=== PATIENT | female | born 1945 | race Caucasian/White ===

== ENCOUNTER 2018-10-29 18:17 | Emergency (ER) | payer OTHER, MEDICARE ==
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
[2018-10-29 21:53] VITALS: BP 162/73
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
--- NOTE | 2018-10-30 09:09 | EKG REPORT ---
SEVERITY:- BORDERLINE ECG - SINUS RHYTHM BORDERLINE T WAVE ABNORMALITIES : Confirmed by: Flakito Stern 30-Oct-2018 09:09:24
== END 2018-10-29 21:53 | disposition home or self-care (01) ==
LOC: ER 18:17
DX: S29.9XXA Unspecified injury of thorax, initial encounter (principal); R07.9 Chest pain, unspecified; V87.7XXA Person injured in collision between other specified motor vehicles (traffic), initial encounter; I10 Essential (primary) hypertension; E11.9 Type 2 diabetes mellitus without complications
CPT/HCPCS: 71046; 93005; 93010; 99284

== ENCOUNTER 2020-10-03 21:25 | Observation (INO) | payer MEDICARE, OTHER ==
--- NOTE | 2020-10-03 21:41 | ER Document Report ---
ED Medical Screen (RME) - General Stated Complaint: NAUSEA/HEADACHE/CHEST PRESSURE Time Seen by Provider: 10/03/20 21:31 Primary Care Provider: SKYE SUGGS MD [Primary Care Provider] - Follow up as needed Mode of Arrival: Wheelchair Information source: Patient Notes: HPI; 75-year-old female presents to the emergency room complaining of hypotension and bradycardia for the past 3 days. States she normally has hypertension but has noticed over the past few days that her blood pressures been 110 over the 40s with a pulse rate from the high 40s to low 50s. Also complains of some midsternal chest pressure. Also complains of a generalized headache. Complains of nausea but no vomiting. No diaphoresis. No medications for symptoms. PE: Alert and oriented x3. Lungs: Clear to auscultation without rales, rhonchi, wheezes. Heart bradycardic without murmurs, rubs, gallops. I have greeted and performed a rapid initial assessment of this patient. A comprehensive ED assessment and evaluation of the patient, analysis of test results and completion of the medical decision making process will be conducted by additional ED providers. I have specifically instructed the patient or family members with the patient to immediately return to any nursing staff should anything change in the patient's condition or with their chief complaint. TRAVEL OUTSIDE OF THE [place] IN LAST 30 DAYS: No - Related Data Allergies/Adverse Reactions: No Known Allergies Allergy (Unverified 09/11/12 13:23) Past Medical History - Past Medical History Cardiac Medical History: Reports: Hx Hypercholesterolemia, Hx Hypertension Endocrine Medical History: Reports: Hx Diabetes Mellitus Type 2 - being checked for this now Renal/ Medical History: Denies: Hx Peritoneal Dialysis Past Surgical History: Reports: Hx Hysterectomy, Hx Orthopedic Surgery - L akle, Hx Tubal Ligation - Immunizations Immunizations up to date: Yes Hx Diphtheria, Pertussis, Tetanus Vaccination: Yes Doctor's Discharge - Discharge Referrals: SKYE SUGGS MD [Primary Care Provider] - Follow up as needed
--- NOTE | 2020-10-03 22:20 | RADIOLOGY REPORT (SQ) ---
EXAM DESCRIPTION: CT HEAD WITHOUT IV CONTRAST COMPLETED DATE/TME: 10/03/2020 22:00 CLINICAL HISTORY: 75 years, Female, Headache COMPARISON: None. TECHNIQUE: Noncontrast images of the brain were obtained. Images stored on PACS. All CT scanners at this facility use dose modulation, iterative reconstruction, and/or weight based dosing when appropriate to reduce radiation dose to as low as reasonably achievable (ALARA). [facility]: Dose Right [facility]: CareDose [facility]: Dose Right [facility]: Teradose 4D [facility]: [employer] LIMITATIONS: None. FINDINGS: There is no acute intracranial hemorrhage, abnormal mass effect, or major vascular territorial infarction. The ventricular system and extra axial spaces are within normal limits. The visualized portions of the paranasal sinuses and mastoid air cells are clear. IMPRESSION: No acute abnormality as above. TECHNICAL DOCUMENTATION: Quality ID # 436: Final reports with documentation of one or more dose reduction techniques (e.g., Automated exposure control, adjustment of the mA and/or kV according to patient size, use of iterative reconstruction technique) copyright 2011 [employer]- All Rights Reserved
--- NOTE | 2020-10-03 22:23 | RADIOLOGY REPORT (SQ) ---
CHEST X-RAY 1 VIEW on 10/03/2020 at 9:50 PM CLINICAL INDICATION: Chest pain COMPARISON: 10/29/2018 FINDINGS: Vascular calcification is noted in the aorta. Hardware is noted traversing an interval but old healed right clavicle fracture. Minimal biapical scarring is noted. The lungs are otherwise clear. Cardiac, hilar and mediastinal contours are within normal limits. Pulmonary vascularity is within normal limits. IMPRESSION: No acute disease.
[2020-10-03] MEDS ORDERED: ACETAMINOPHEN 325 MG TABLET PO ONE (22:40)
[2020-10-03 23:15] LABS: ABSOLUTE EOSINOPHILS # (AUTO) 0.2 10^3/uL (0.0-0.6); ABSOLUTE LYMPHOCYTES (AUTO) 2.9 10^3/uL (0.5-4.7); ABSOLUTE MONOCYTES (AUTO) 0.6 10^3/uL (0.1-1.4); ABSOLUTE NEUT (AUTO) 3.9 10^3/uL (1.7-8.2); BASOPHILS % (AUTO) 0.6 % (0-2); EOSINOPHILS % (AUTO) 2.9 % (0-6); HEMATOCRIT 37.6 % (36.0-47.0); HEMOGLOBIN 13.1 g/dL (12.0-15.5); LYMPHOCYTES % (AUTO) 37.8 % (13-45); MEAN CORPUSCULAR HEMOGLOBIN 30.6 pg (27.0-33.4); MEAN CORPUSCULAR HGB CONC 34.9 g/dL (32.0-36.0); MEAN CORPUSCULAR VOLUME 88 fl (80-97); MONOCYTES % (AUTO) 7.6 % (3-13); PLATELET COUNT 211 10^3/uL (150-450); RED BLOOD COUNT 4.29 10^6/uL (3.72-5.28); RED CELL DISTRIBUTION WIDTH 13.3 % (11.5-14.0); SEGMENTED NEUTROPHILS % (AUTO) 51.1 % (42-78); TOTAL CELLS COUNTED % (AUTO) 100 %; WHITE BLOOD COUNT 7.6 10^3/uL (4.0-10.5)
[2020-10-03 23:32] LABS: ALBUMIN 4.3 g/dL (3.5-5.0); ALKALINE PHOSPHATASE 88 U/L (38-126); ANION GAP 14 (5-19); ASPARTATE AMINO TRANSFERASE 23 U/L (14-36); BILIRUBIN,TOTAL 0.2 mg/dL (0.2-1.3); BLOOD UREA NITROGEN 21 mg/dL (7-20); CALCIUM 9.4 mg/dL (8.4-10.2); CARBON DIOXIDE 22 mmol/L (22-30); CHLORIDE 104 mmol/L (98-107); GLUCOSE 162 mg/dL (75-110); POTASSIUM 4.4 mmol/L (3.6-5.0); TOTAL PROTEIN 7.1 g/dL (6.3-8.2)
[2020-10-04] MEDS ORDERED: ASPIRIN 81 MG TABLET, CHEWABLE PO ONE (00:09)
[2020-10-04] MEDS ORDERED: NITROGLYCERIN 2% OINTMENT 1 GM PACKET TP ONE (00:09)
--- NOTE | 2020-10-04 00:30 | ER Document Report ---
Entered by DEEPTHI CALLEJAS SCRIBE 10/04/20 0006 Acting as scribe for:SHIRLEY WILLIAMSON, ED General - General Chief Complaint: Chest Pressure Stated Complaint: NAUSEA/HEADACHE/CHEST PRESSURE Time Seen by Provider: 10/03/20 21:31 Primary Care Provider: SKYE SUGGS MD [Primary Care Provider] - Follow up as needed Mode of Arrival: Wheelchair Information source: Patient Notes: This 75 year old female patient presents to the emergency department today with complaints of "feeling like there was a ball in her chest" with associated poste rior neck pain and head pressure. Patient had a similar episode on thursday. Patient states they both last about 30-40 minutes, mentioning that the episode today was more severe. Patient has had some nausea but she denies any vomiting, sick contacts, diaphoresis, or COVID exposure. TRAVEL OUTSIDE OF THE [place] IN LAST 30 DAYS: No - Related Data Allergies/Adverse Reactions: No Known Allergies Allergy (Unverified 09/11/12 13:23) Home Medications: cardiazem, metoprolol, losartan, omega 3, asa low dose, p otassium, preservision. Past Medical History - General Information source: Patient - Social History Smoking Status: Never Smoker Cigarette use (# per day): No Frequency of alcohol use: None Drug Abuse: None Lives with: Family Family History: Reviewed & Not Pertinent - Past Medical History Cardiac Medical History: Reports: Hx Hypercholesterolemia, Hx Hypertension Endocrine Medical History: Reports: Hx Diabetes Mellitus Type 2 - being checked for this now Past Surgical History: Reports: Hx Hysterectomy, Hx Orthopedic Surgery - L akle, Hx Tubal Ligation - Immunizations Immunizations up to date: Yes Hx Diphtheria, Pertussis, Tetanus Vaccination: Yes Review of Systems - Review of Systems Constitutional: denies: Diaphoresis EENT: No symptoms reported Cardiovascular: See HPI, Chest pain Respiratory: No symptoms reported Gastrointestinal: See HPI, Nausea. denies: Vomiting Genitourinary: No symptoms reported Female Genitourinary: No symptoms reported Musculoskeletal: No symptoms reported Skin: No symptoms reported Hematologic/Lymphatic: No symptoms reported Neurological/Psychological: No symptoms reported -: Yes All other systems reviewed and negative Physical Exam - Vital signs Vitals: Temp Pulse Resp BP Pulse Ox 98.1 F 52 L 22 H 145/52 H 99 10/03/20 21:41 10/03/20 21:41 10/03/20 21:41 10/03/20 21:41 10/03/20 21:41 - Notes Notes: Physical Exam: General: Alert, appears well. HEENT: Normocephalic. Atraumatic. PERRL. Extraocular movements intact. Oropharynx clear. Neck: Supple. Non-tender. Respiratory: No respiratory distress. Clear and equal breath sounds bilaterally. Cardiovascular: Regular rate and rhythm. Abdominal: Obese. Non-tender. No distension. Normal Bowel Sounds. Back: No gross abnormalities. Extremities: Moves all four extremities. Upper extremities: Normal inspection. Normal ROM. Lower extremities: Trace pitting edema bilaterally. Normal ROM. Neurological: Normal cognition. AAOx4. Normal speech. Psychological: Normal affect. Normal Mood. Skin: Warm. Dry. Normal color. Course - Re-evaluation Re-evalutation: 10/04/20 01:08 MDM 75 year old female with chest pain and spell of feeling poorly in her neck that lasted perhaps 30 minutes earlier. She is pain free when I see her. 10/04/20 01:10 I have discussed the pt with the hospitalist who has graciously agreed to see and evaluate for admission. - Vital Signs Vital signs: Temp Pulse Resp BP Pulse Ox 98.1 F 52 L 20 154/55 H 98 10/03/20 21:41 10/03/20 21:41 10/04/20 00:34 10/04/20 00:34 10/04/20 00:34 - Laboratory Result Diagrams: 10/03/20 23:04 10/03/20 23:04 Laboratory results interpreted by me: 10/03/20 23:04 BUN 21 H Est GFR (MDRD) Non-Af 53 L Glucose 162 H - Diagnostic Test Radiology reviewed: Image reviewed, Reports reviewed - EKG Interpretation by Me EKG shows normal: Sinus rhythm Rate: Bradycardia - Sinus Perez Nl Cecil repol ab [address] elevaiton or depression my interpretation. Discharge - Discharge Clinical Impression: Angina at rest, Hyperglycemia Hypertension Qualifiers: Hypertension type: unspecified Qualified Code(s): I10 - Essential (primary) hypertension Condition: Stable Disposition: ADMITTED OBSERVATION Admitting Provider: Prema (Hospitalist) Unit Admitted: Telemetry Referrals: SKYE SUGGS MD [Primary Care Provider] - Follow up as needed I personally performed the services described in the documentation, reviewed and edited the documentation which was dictated to the scribe in my presence, and it accurately records my words and actions.
[2020-10-04] MEDS ORDERED: MIDAZOLAM 2 MG/2 ML INJ IV ONE (01:12)
[2020-10-04] MEDS ORDERED: ACETAMINOPHEN 650 MG SUPP.RECT PR PRN (01:18)
[2020-10-04] MEDS ORDERED: ONDANSETRON HCL INJ/PF 4 MG/2 ML SDV IV PRN (01:18)
[2020-10-04] MEDS ORDERED: ONDANSETRON 4 MG TAB.RAPDIS PO PRN (01:18)
--- NOTE | 2020-10-04 01:35 | PDOC H&P ---
History of Present Illness Admission Date/PCP: 10/04/20 01:16 SKYE SUGGS MD History of Present Illness: ALEENA SADLER is a 75 year old female with past medical history significant for hypertension, hyperlipidemia, history of RCC status post ablation who presents to the ED with 4-day history of intermittent chest pain/pressure with occasional associated posterior neck discomfort/pain. Patient is also noted her blood pressure abruptly drops along with her heart rate which she has checked at home. Patient denies any history of CAD or heart failure. She denies any history of diabetes though her blood sugar on admission is in the 160s. Troponin is negative however patient's EKG shows ST depression in the lateral leads. Patient states her father of an abdominal aortic aneurysm. She denies any history of vascular abnormalities herself. Head CT and chest x-ray did not show any acute abnormalities. Patient admitted for nuclear stress test and cardiology consult. Suspect she does actually have underlying ischemia and may need transfer to a tertiary facility for intervention if stress test is positive. Trend troponins. Past Medical History Cardiac Medical History: Reports: Hyperlipidema, Hypertension Endocrine Medical History: Reports: Diabetes Mellitus Type 2 - being checked for this now Past Surgical History Past Surgical History: Reports: Hysterectomy, Orthopedic Surgery - L akle, Tubal Ligation Social History Information Source: Patient, Emergency Med Personnel Lives with: Family Smoking Status: Former Smoker Frequency of Alcohol Use: None Hx Recreational Drug Use: No - Advance Directive Resuscitation Status: Full Code Surrogate healthcare decision maker:: Admitting diagnosis: Chest pain All aspects of code status discussed with patient/POA including cardioversion, chest compressions, and intubation and the patient/POA indicated they wish to be full code MPOA is designated as: , Otoniel Time spent: Greater than 16 minutes Family History Family History: Reviewed & Not Pertinent, Malignancy Parental Family History Reviewed: Yes Children Family History Reviewed: Yes Sibling(s) Family History Reviewed.: Yes Medication/Allergy Home Medications: Metoprolol Tartrate [Lopressor 100 Mg Tablet] 100 mg PO DAILY 09/11/12 Ondansetron HCl [Zofran 4 mg Tablet] 1 - 2 tab PO Q4H PRN #30 tablet 09/11/12 Oxycodone HCl/Acetaminophen [Percocet 5-325 mg Tablet] 1 tab PO Q4H PRN #15 tablet 09/11/12 Allergies/Adverse Reactions: No Known Allergies Allergy (Unverified 09/11/12 13:23) Review of Systems All systems: reviewed and no additional remarkable complaints except as stated - Per HPI otherwise negative Physical Exam Vital Signs: Temp Pulse Resp BP Pulse Ox 98.1 F 52 L 20 154/55 H 98 10/03/20 21:41 10/03/20 21:41 10/04/20 00:34 10/04/20 00:34 10/04/20 00:34 Intake & Output 10/02/20 10/03/20 10/04/20 06:59 06:59 06:59 Weight 67.132 kg Exam: General appearance: PRESENT: no acute distress, well-developed, well-nourished, elderly white female Head exam: PRESENT: atraumatic, normocephalic Eye exam: PRESENT: conjunctiva pink. ABSENT: scleral icterus Mouth exam: PRESENT: moist Respiratory exam: PRESENT: clear to auscultation norma. ABSENT: rales, rhonchi, wheezes Cardiovascular exam: PRESENT: RRR. ABSENT: diastolic murmur, rubs, systolic murmur GI/Abdominal exam: PRESENT: normal bowel sounds, soft. ABSENT: distended, guarding, mass, organolmegaly, rebound, tenderness Neurological exam: PRESENT: alert, awake, oriented to person, oriented to place, oriented to time, oriented to situation Psychiatric exam: PRESENT: appropriate affect, normal mood Skin exam: PRESENT: dry, intact, warm Results Laboratory Results: 10/03/20 23:04 10/03/20 23:04 10/03/20 10/03/20 23:04 23:04 WBC 7.6 RBC 4.29 Hgb 13.1 Hct 37.6 MCV 88 MCH 30.6 MCHC 34.9 RDW 13.3 Plt Count 211 Seg Neutrophils % 51.1 Sodium 139.9 Potassium 4.4 Chloride 104 Carbon Dioxide 22 Anion Gap 14 BUN 21 H Creatinine 1.02 Est GFR ( Amer) > 60 Glucose 162 H Calcium 9.4 Total Bilirubin 0.2 AST 23 Alkaline Phosphatase 88 Total Protein 7.1 Albumin 4.3 10/03/20 23:04 Troponin I < 0.012 Impressions: Chest X-Ray 10/03/20 21:38 IMPRESSION: No acute disease. Head CT 10/03/20 21:39 IMPRESSION: No acute abnormality as above. TECHNICAL DOCUMENTATION: Quality ID # 436: Final reports with documentation of one or more dose reduction techniques (e.g., Automated exposure control, adjustment of the mA and/or kV according to patient size, use of iterative reconstruction technique) copyright 2011 [employer]- All Rights Reserved Assessment and Plan - Diagnosis (1) Angina at rest Is this a current diagnosis for this admission?: Yes Plan: 4 days intermittent chest pain/pressure episodes with associated drops in blood pressure and heart rate EKG showed ST depression in lateral leads Troponin negative, trending Cardiology consult Nuclear stress test, n.p.o. May need transfer to tertiary facility for intervention if stress test is positive (2) Neck discomfort Is this a current diagnosis for this admission?: Yes Plan: Strange atypical symptoms, potential for carotid artery stenosis; may consider CTA/MRA brain if symptoms persist and other testing is negative Check carotid PVL Family history of aortic aneurysm (3) HLD (hyperlipidemia) Qualifiers: Hyperlipidemia type: unspecified Qualified Code(s): E78.5 - Hyperlipidemia, unspecified Is this a current diagnosis for this admission?: Yes Plan: Statin (4) Hyperglycemia Is this a current diagnosis for this admission?: Yes Plan: Hemoglobin A1c (5) Hypertension Qualifiers: Hypertension type: unspecified Qualified Code(s): I10 - Essential (primary) hypertension Is this a current diagnosis for this admission?: Yes Plan: Home medications - Time Time Spent with patient: 35 or more minutes Medications reviewed and adjusted accordingly: Yes Anticipated Discharge Disposition: Home, Self Care Anticipated Discharge Timeframe: within 48 hours
[2020-10-04 02:22] LABS: ANION GAP 11 (5-19); BLOOD UREA NITROGEN 21 mg/dL (7-20); CALCIUM 9.2 mg/dL (8.4-10.2); CARBON DIOXIDE 23 mmol/L (22-30); CHLORIDE 105 mmol/L (98-107); GLUCOSE 109 mg/dL (75-110); POTASSIUM 4.7 mmol/L (3.6-5.0)
[2020-10-04] MEDS ORDERED: ENOXAPARIN SODIUM INJ 40 MG/0.4 ML DISP.SYRIN SUBCUT SCH (10:00)
[2020-10-04] MEDS ORDERED: DOCUSATE SODIUM 100 MG/10 ML UDC PO SCH (10:00)
[2020-10-04] MEDS ORDERED: REGADENOSON INJ 0.4 MG/5 ML DISP.SYRIN IV ONE (10:37)
[2020-10-04 11:52] VITALS: BP 152/61
[2020-10-04] MEDS ORDERED: ENOXAPARIN SODIUM INJ 40 MG/0.4 ML DISP.SYRIN SUBCUT ONE (13:00)
[2020-10-04] MEDS ORDERED: DOCUSATE SODIUM 100 MG CAPSULE PO ONE (13:00)
--- NOTE | 2020-10-04 16:04 | RADIOLOGY REPORT (SQ) ---
EXAM DESCRIPTION: CAROTID DOPPLER IMAGES COMPLETED DATE/TIME: 10/04/2020 3:49 pm REASON FOR STUDY: vascular disease R07.9 CHEST PAIN, UNSPECIFIED R73.9 HYPERGLYCEMIA, UNSPECIFIED I10 ESSENTIAL (PRIMARY) HYPERTENSION COMPARISON: None. TECHNIQUE: Grayscale ultrasound, Doppler velocity and spectra, and color Doppler images acquired of the extra-cranial carotid and vertebral arteries. Images stored on PACS. LIMITATIONS: None. FINDINGS: RIGHT CAROTID CCA Velocities: Within normal limits. ICA Velocities Peak systolic 1.39 m/s. End diastolic 0.30 m/s. Proximal ICA/CCA peak systolic ratio 2.0. Moderate plaque bifurcation and proximal ICA. LEFT CAROTID CCA Velocities: Within normal limits. ICA Velocities Peak systolic 1.14 m/s. End diastolic 0.29 m/s. Proximal ICA/CCA peak systolic ratio 1.2. Moderate plaque bifurcation and proximal ICA. VERTEBRAL ARTERIES: Antegrade flow. Normal waveforms. SUBCLAVIAN ARTERIES: Not imaged. OTHER: No other significant finding. IMPRESSION: Right: 50- 69% stenosis ICA, closer to 50%. Left: No significant stenosis. COMMENT: Quality ID #195: Velocity criteria are extrapolated from the diameter data as defined by t he Society of Radiologists in Ultrasound Consensus Conference. Radiology 2003: 229; 340-346. TECHNICAL DOCUMENTATION: JOB ID: [id number] 2010 [employer]- All Rights Reserved Reading location - IP/workstation name: [email or web address]
--- NOTE | 2020-10-04 16:38 | PDOC DISCHARGE SUMMARY ---
Impression - Admit/DC Date/PCP Admission Date/Primary Care Provider: 10/04/20 01:16 SKYE WASHINGTON MD Discharge Date: 10/04/20 - Additional Information Resuscitation Status: Full Code Discharge Diet: Cardiac Discharge Activity: Activity As Tolerated Referrals: SKYE WASHINGTON MD [Primary Care Provider] - Follow up as needed Home Medications: Diltiazem HCl [Diltiazem 24Hr ER (Cd)] 120 mg PO DAILY 10/04/20 Docusate Sodium [Colace Udc 100 mg/10 ml Oral Soln] 100 mg PO DAILY udc 10/04/20 Ezetimibe [Zetia 10 mg Tablet] 10 mg PO DAILY 10/04/20 Metoprolol Succinate [Toprol Xl] 100 mg PO DAILY 10/04/20 [place]-3 Acid Ethyl Esters 2 gm PO BID 10/04/20 Potassium Chloride [Klor-Con M20] 20 meq PO DAILY 10/04/20 Telmisartan 80 mg PO DAILY 10/04/20 History of Present Illiness History of Present Illness: ALEENA SADLER is a 75 year old female with past medical history significant for hypertension, hyperlipidemia, history of RCC status post ablation who presents to the ED with 4-day history of intermittent chest pain/pressure with occasional associated posterior neck discomfort/pain. Patient is also noted her blood pressure abruptly drops along with her heart rate which she has checked at home. Patient denies any history of CAD or heart failure. She denies any history of diabetes though her blood sugar on admission is in the 160s. Troponin is negative however patient's EKG shows ST depression in the lateral leads. Patient states her father of an abdominal aortic aneurysm. She denies any history of vascular abnormalities herself. Head CT and chest x-ray did not show any acute abnormalities. Patient admitted for nuclear stress test and cardiology consult. Suspect she does actually have underlying ischemia and may need transfer to a tertiary facility for intervention if stress test is positive. Trend troponins. Hospital Course Hospital Course: Uneventful hospital course. The patient had a negative stress test. Carotid ultrasound showed a 50 to 69% lesion on the right. No lesions on the left. Had a long discussion with the patient regarding other possible etiologies including GI. Reflux. She also states that she occasionally coughs when she drinks. I recommended she talk to Dr. Hallegado about doing a GI work-up and considering speech therapy evaluation. I also suggested that the patient take her omeprazole daily. Physical Exam Vital Signs: Temp Pulse Resp BP Pulse Ox 98.1 F 66 18 152/61 H 100 10/04/20 11:47 10/04/20 11:47 10/04/20 11:47 10/04/20 11:47 10/04/20 11:47 Intake & Output 10/03/20 10/04/20 10/05/20 06:59 06:59 06:59 Weight 67.132 kg 68.1 kg General appearance: PRESENT: no acute distress, cooperative, well-developed Head exam: PRESENT: atraumatic, normocephalic Respiratory exam: PRESENT: clear to auscultation norma, symmetrical, unlabored. ABSENT: rales, rhonchi, tachypnea, wheezes Cardiovascular exam: PRESENT: RRR, +S1, +S2. ABSENT: bradycardia, diastolic murmur, irregular rhythm, systolic murmur, tachycardia GI/Abdominal exam: PRESENT: normal bowel sounds, soft. ABSENT: tenderness Rectal exam: PRESENT: deferred Musculoskeletal exam: PRESENT: ambulatory Neurological exam: PRESENT: alert, awake, oriented to person, oriented to place, oriented to time, oriented to situation, CN II-XII grossly intact Results Laboratory Results: WBC 7.6 10^3/uL (4.0-10.5) 10/03/20 23:04 RBC 4.29 10^6/uL (3.72-5.28) 10/03/20 23:04 Hgb 13.1 g/dL (12.0-15.5) 10/03/20 23:04 Hct 37.6 % (36.0-47.0) 10/03/20 23:04 MCV 88 fl (80-97) 10/03/20 23:04 MCH 30.6 pg (27.0-33.4) 10/03/20 23:04 MCHC 34.9 g/dL (32.0-36.0) 10/03/20 23:04 RDW 13.3 % (11.5-14.0) 10/03/20 23:04 Plt Count 211 10^3/uL (150-450) 10/03/20 23:04 Lymph % (Auto) 37.8 % (13-45) 10/03/20 23:04 [place] % (Auto) 7.6 % (3-13) 10/03/20 23:04 Eos % (Auto) 2.9 % (0-6) 10/03/20 23:04 Baso % (Auto) 0.6 % (0-2) 10/03/20 23:04 Absolute Neuts (auto) 3.9 10^3/uL (1.7-8.2) 10/03/20 23:04 Absolute Lymphs (auto) 2.9 10^3/uL (0.5-4.7) 10/03/20 23:04 Absolute Monos (auto) 0.6 10^3/uL (0.1-1.4) 10/03/20 23:04 Absolute Eos (auto) 0.2 10^3/uL (0.0-0.6) 10/03/20 23:04 Absolute Basos (auto) 0.0 10^3/uL (0.0-0.2) 10/03/20 23:04 Seg Neutrophils % 51.1 % (42-78) 10/03/20 23:04 Sodium 138.5 mmol/L (137-145) 10/04/20 01:49 Potassium 4.7 mmol/L (3.6-5.0) 10/04/20 01:49 Chloride 105 mmol/L (98-107) 10/04/20 01:49 Carbon Dioxide 23 mmol/L (22-30) 10/04/20 01:49 Anion Gap 11 (5-19) 10/04/20 01:49 BUN 21 mg/dL (7-20) H 10/04/20 01:49 Creatinine 0.84 mg/dL (0.52-1.25) 10/04/20 01:49 Est GFR ( Amer) > 60 (>60) 10/04/20 01:49 Est GFR (MDRD) Non-Af > 60 (>60) 10/04/20 01:49 Glucose 109 mg/dL (75-110) 10/04/20 01:49 Calcium 9.2 mg/dL (8.4-10.2) 10/04/20 01:49 Total Bilirubin 0.2 mg/dL (0.2-1.3) 10/03/20 23:04 Direct Bilirubin 0.0 mg/dL (0.0-0.4) 10/03/20 23:04 Neonat Total Bilirubin Not Reportable 10/03/20 23:04 Neonat Direct Bilirubin Not Reportable 10/03/20 23:04 Neonat Indirect Bili Not Reportable 10/03/20 23:04 AST 23 U/L (14-36) 10/03/20 23:04 ALT 29 U/L (<35) 10/03/20 23:04 Alkaline Phosphatase 88 U/L (38-126) 10/03/20 23:04 Troponin I < 0.012 ng/mL 10/04/20 06:55 Total Protein 7.1 g/dL (6.3-8.2) 10/03/20 23:04 Albumin 4.3 g/dL (3.5-5.0) 10/03/20 23:04 10/03/20 10/04/20 10/04/20 23:04 01:49 06:55 Troponin I < 0.012 < 0.012 < 0.012 Impressions: Chest X-Ray 10/03/20 21:38 IMPRESSION: No acute disease. Head CT 10/03/20 21:39 IMPRESSION: No acute abnormality as above. TECHNICAL DOCUMENTATION: Quality ID # [id number]: Final reports with documentation of one or more dose reduction techniques (e.g., Automated exposure control, adjustment of the mA and/or kV according to patient size, use of iterative reconstruction technique) copyright 2011 [employer]- All Rights Reserved Carotid Doppler Study 10/04/20 01:33 IMPRESSION: Right: 50- 69% stenosis ICA, closer to 50%. Left: No significant stenosis. Plan Health Concerns: None cardiac causes of chest pain including esophagitis. Patient also reported some symptoms consistent with dysphagia. Plan of Treatment: Continue current medications. Follow-up with Dr. Washington and work on evaluations for possible dysphagia and esophageal causes of chest pain Goals: Identify the cause of her chest discomfort with effective treatment plan. Rule out dysphagia. Time Spent: Greater than 30 Minutes Stroke Is this a Stroke Patient?: No Acute Heart Failure Is this a Heart Failure Patient?: No
--- NOTE | 2020-10-04 23:57 | DRAGON STRESS TEST REPORT ---
Intravenous Lexiscan Cardiolite stress test using single photon emmision computerized tomography. Date of procedure: 10/04/2020.Ordering Provider: Dr. Lloyd. Patient's status: In Patient. PATIENT'S PMD: Dr. Washington. Indication: Chest pain. Coronary risk factors: Age, and hypertension. Resting EKG: SINUS Rhythm. Nonspecific ST-T changes lateral leads. Stress EKG: No changes of ischemia. The patient had no chest pain discomfort, and no arrhythmias seen. Reason for termination: Protocol. Conclusions: Normal EKG and hemodynamic response to IV Lexiscan. Nuclear data: At rest the patient was given 10.50 millicuries of technetium 99m sestamibi injected intravenously. As per protocol rest non gated SPECT images were obtained. Subsequently the patient was given intravenous Lexiscan at a dose of 0.4 mg in 5 mL intravenously, followed by flush with normal saline. Subsequently the stress dose of 31.9 millicuries of technetium 99m sestamibi was injected intravenously. As per protocol stress gated images were obtained. Nuclear interpretation: Review of images showed that all segments of the myocardium had normal perfusion at rest, and normal perfusion post stress with IV Lexiscan. All segments of the myocardium had normal motion, contraction, and thickening by gated study. T. I D. ratio was normal at 0.86. There is no transient ischemic dilatation of the left ventricle. Computer read rest, and stress left ventricular ejection fraction were 74%, and 76%, respectively. Conclusion: 1. There is no scintigraphic evidence of Lexiscan induced myocardial ischemia. 2. There is no scintigraphic evidence of myocardial infarction/scar. Recommendations: Aggressive risk factor modification, and treating the underlying co- morbidities. MTDD
--- NOTE | 2020-10-05 00:29 | EKG REPORT ---
SEVERITY:- ABNORMAL ECG - SINUS RHYTHM ABNORMAL T, CONSIDER ISCHEMIA, LATERAL LEADS : Confirmed by: Flakito Stern 05-Oct-2020 00:28:29
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
== END 2020-10-04 17:24 | disposition home or self-care (01) ==
LOC: ER 21:25 → EH 10-04 01:16 → 4N 10-04 11:41
PROVIDERS: ADMIT Internal Medicine; ATTEND Hospitalist
DX: I20.8 Other forms of angina pectoris (principal); E78.5 Hyperlipidemia, unspecified; R73.9 Hyperglycemia, unspecified; I10 Essential (primary) hypertension; R11.0 Nausea; I65.21 Occlusion and stenosis of right carotid artery; M54.2 Cervicalgia; E66.9 Obesity, unspecified; R60.0 Localized edema; I95.9 Hypotension, unspecified; R00.1 Bradycardia, unspecified; Z79.899 Other long term (current) drug therapy; Z98.890 Other specified postprocedural states; Z82.49 Family history of ischemic heart disease and other diseases of the circulatory system; Z87.891 Personal history of nicotine dependence; Z79.82 Long term (current) use of aspirin
CPT/HCPCS: 93005; 99285; 36415; 85025; 80048; 80053; 84484 ×2; 93017; 93880; 71045; 78452; 70450; 93010; G0378; A9500; J2785; A9270 ×3; Q9969